=== PATIENT | male | born 2000 | race Caucasian/White ===

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

== ENCOUNTER → 2022-02-12 19:19 | Outpatient (CLI) | payer OTHER, MEDICAID, SELFPAY ==
[2022-02-12 20:32] LABS: COVID-19 CEPHEID 4-PLEX PCR Negative (Negative); Influenza A - CEPHEID Flu A NEGATIVE (NEGATIVE); Influenza B - CEPHEID Flu B NEGATIVE (NEGATIVE); Respiratory Syncytial Virus Negative (Negative)
== END ==
PROVIDERS: Family Provider Pediatrics; PCP Pediatrics; Visit Provider Physician Assistant Medical
DX: R11.10 Vomiting, unspecified (principal)
CPT/HCPCS: 0241U

== ENCOUNTER 2022-06-04 21:32 | Emergency (ER) | payer OTHER, MEDICAID, SELFPAY ==
[2022-06-04 21:45] VITALS: BP 130/70; PULSE 80; RESP 18; TEMP 37.1; O2SAT 98; BMI 31.7
--- NOTE | 2022-06-04 21:55 | ED_ITS ---
HPI - General Adult General Chief complaint: Nausea/Vomiting/Diarrhea Stated complaint: vomiting Time Seen by Provider: 06/04/22 21:33 History of Present Illness HPI narrative: 22 year old male smoker with asthma presents with a friend at bedside in the chief complaint multiple episodes of nausea vomiting and diarrhea over the course of the day. He states he started feeling a bit under the weather yesterday was bothered by nausea but today he is had multiple episodes of vomiting as stated. He states that at times there is some generalized crampy abdominal pain but that seems to have resolved. He denies any fever or chills. Denies recent antibiotics, travel or exposure to bad food. Did have some upper respiratory complaints last week with nasal congestion and cough and was seen at a walk-in clinic but they had run out of COVID swabs so he was not swabbed. Related Data Previous Rx's Medication Instructions Recorded benzoyl peroxide 10 % topical 1 colin topical QAM ##45 10/16/16 cream (Clearasil Daily Clear (benzoyl peroxide)) tretinoin 0.025 % topical cream 1 colin topical HS ##45 10/16/16 (Retin-A) cetirizine 10 mg tablet (Allergy 10 mg PO DAILY #30 tabs 06/22/18 Relief (cetirizine)) cyclobenzaprine 10 mg tablet 10 mg PO BID PRN muscle spasm #7 11/21/19 tabs amoxicillin 500 mg capsule 500 mg PO BID #20 caps 07/21/20 ondansetron 4 mg disintegrating 4 mg PO Q8H PRN nausea #14 tabs 02/12/22 tablet ondansetron 4 mg disintegrating 4 mg PO TID-QID PRN nausea and 06/04/22 tablet vomiting #10 tabs pantoprazole 40 mg tablet,delayed 40 mg PO DAILY #30 tabs 06/04/22 release (Protonix) Allergies Allergy/AdvReac Type Severity Reaction Status Date / Time No Known Drug Allergies Allergy Unknown Verified 02/12/22 19:19 Review of Systems Review of Systems Narrative: GENERAL: See HPI HEENT: Denies sinus pain, ear pain, sore throat, difficulty swallowing, dizziness. RESPIRATORY: Denies dyspnea, cough, wheezing, hemoptysis, sputum. CARDIOVASCULAR: Denies chest pain, palpitations, orthopnea, edema, GASTROINTESTINAL: See HPI : Denies dysuria, frequency, incontinence, hematuria, urinary retention. MUSCULOSKELETAL: denies weakness, joint pain, or bony pain SKIN: Denies rash, skin lesions, or other NEUROLOGIC: Denies weakness, headache, numbness, change in speech, confusion, seizures, incoordination. PSYCHIATRIC: No concerning psychosocial issues. 12 point review of systems is negative except for those stated above Patient History Medical History (Updated 06/04/22 @ 23:19 by Chidi Scott DO) History of sleep apnea (10/16/16) Social History Smoking Status: Current every day smoker Smoking Status: Current every day smoker alcohol intake frequency: a few times a month Substance Use Type: marijuana Exam Narrative Exam Narrative: GENERAL: [22] year old patient appears stated age. Well-developed patient, in mild distress. HEAD: Atraumatic. Normocephalic. EYES: Pupils equal round and reactive. Extraocular motions intact. No scleral icterus. No injection or drainage. ENT: Nose without bleeding, purulent drainage. Throat without erythema, tonsillar hypertrophy or exudate. Airway patent. NECK: Trachea midline. Non tender CARDIOVASCULAR: Regular rate and rhythm without murmurs, gallops, or rubs. RESPIRATORY: Clear to auscultation. Breath sounds equal bilaterally. No wheezes, rales, or rhonchi. GASTROINTESTINAL: Abdomen soft, non-tender, nondistended. EXTREMITIES: No edema or joint tenderness. BACK: Nontender without deformity or crepitance. No flank tenderness. NEURO: AOx3. SKIN: No rash or erythema of visible areas Initial Vital Signs Initial Vital Signs: Vital Signs Temperature 98.8 F 06/04/22 21:45 Pulse Rate 80 06/04/22 21:45 Respiratory Rate 18 06/04/22 21:45 Blood Pressure 130/70 06/04/22 21:45 Pulse Oximetry 98 06/04/22 21:45 Oxygen Delivery Method Room Air 06/04/22 21:45 Course Orders Ordered: ED Orders 06/04/22 22:00 Covid-19 + FLU A/B + RSV - PCR Stat 06/04/22 22:10 Complete Blood Count AUTO DIFF Stat Comprehensive Metabolic Panel Stat Magnesium Stat Discontinued Medications Sodium Chloride (Normal Saline 0.9%) 1,000 mls @ 1,000 mls/hr IV BOLUS ONE Stop: 06/04/22 22:52 Last Infusion: 06/04/22 22:49 Dose: 0 mls/hr Documented By: Admin: 06/04/22 22:08 Dose: 1,000 mls/hr Documented By: PAWEL Ondansetron HCl (Ondansetron 4 Mg/2 Ml Inj) 4 mg IV NOW ONE Stop: 06/04/22 21:54 Last Admin: 06/04/22 22:08 Dose: 4 mg Documented By: PAWEL Ondansetron HCl (Ondansetron 4 Mg Odt Prepack) 1 bottle MISC SEEINSTR ONE Stop: 06/04/22 23:19 Last Admin: 06/04/22 23:24 Dose: 1 bottle Documented By: PAWEL Pantoprazole Sodium (Pantoprazole 40 Mg Vial) 40 mg IV NOW ONE Stop: 06/04/22 21:54 Last Admin: 06/04/22 22:08 Dose: 40 mg Documented By: PAWEL Vital Signs Vital signs: Vital Signs - 8 hr 06/04/22 22:30 06/04/22 23:28 Pulse Rate 84 76 Respiratory Rate 18 16 Blood Pressure 131/73 148/72 H Pulse Oximetry 97 95 Oxygen Delivery Method Room Air Room Air Medical Decision Making Lab Data 06/04/22 22:10 06/04/22 22:10 Labs: Lab Results 06/04/22 06/04/22 06/04/22 Range/Units 22:00 22:10 22:10 WBC 8.4 (4.5-11.0) X10^3/uL RBC 4.75 (4.5-5.9) X10^6/uL Hgb 13.9 (13.5-17.5) g/dL Hct 41.5 (41-53) % MCV 87.3 (80-100) fL MCH 29.3 (26-34) PG MCHC 33.6 (30-36) % RDW 12.8 (11.6-14.8) % Plt Count 308 (150-400) X10^3/uL Neut % (Auto) 80.2 H (50-75) % Lymph % (Auto) 8.9 L (25-40) % Mcpherson % (Auto) 9.0 (3-14) % Eos % (Auto) 1.3 L (2-4) % Baso % (Auto) 0.6 (0-2) % Neut # (Auto) 6700 (9135-8372) /uL Lymph # (Auto) 700 L (3423-8959) /uL Mcpherson # (Auto) 800 (0-900) /uL Eos # (Auto) 100 (0-450) /uL Baso # (Auto) 0 (0-100) /uL Sodium 139 (137-145) mmol/L Potassium 3.4 (3.4-5.1) mmol/L Chloride 103 (98-107) mmol/L Carbon Dioxide 26 (22-32) mmol/L BUN 12 (9-20) mg/dL Creatinine 0.86 (0.66-1.25) mg/dL Estimated GFR > 60 (>60) mL/min BUN/Creatinine Ratio 14.0 (6-22) Glucose 96 (70-100) mg/dL Calcium 8.4 (8.4-10.2) mg/dL Magnesium 1.8 (1.6-2.3) mg/dL Total Bilirubin 1.2 (0.2-1.3) mg/dL AST 43 (17-59) IU/L ALT 39 (<50) IU/L Alkaline Phosphatase 77 (38-126) U/L Total Protein 7.1 (6.3-8.2) g/dL Albumin 4.4 (3.5-5.0) g/dL Globulin 2.7 (1.7-4.1) g/dL Albumin/Globulin Ratio 1.6 (1.0-2.8) SARS-CoV-2 (PCR) Negative (Negative) Influenza A (RT-PCR) Flu a negative (NEGATIVE) Influenza B (RT-PCR) Flu b negative (NEGATIVE) RSV (PCR) Negative (Negative) MDM Narrative Medical decision making narrative: CC: 22M with N/V/D Complicating co-morbidities: none known Data collected from: Patient Medical records reviewed: Prior notes reviewed in our EMR Differential considered, but not limited to: GI viral infection, Covid, Flu vs. other Exam documented above, pertinent findings include: moist mucous membranes, heart rate regular, abdomen soft Lab Test results independently reviewed as above. Pertinent findings: Treatments: Fluids, Zofran, Protonix Re-evaluations: Patient feeling significant improvement, no longer dizzy, weak or lightheaded, nausea is improved and he is tolerating orals without difficulty. Discussion: Patient with nausea, vomiting and diarrhea with reassuring labs and vital signs. He has an appropriate response to fluids, Zofran and Protonix. There is no indication for the need to perform a larger or more in-depth workup, patient feeling much better and requesting discharge. Disposition: see below, along with detailed discharge instructions that have been reviewed with patient as well as indications for ED re-evaluation and additional outpatient follow up Discharge Plan Departure Patient Disposition: Home Clinical Impression: Vomiting, Diarrhea Instructions: Nausea and Vomiting-Adult Activity Restrictions/Additional Instructions: *You have been diagnosed with [nausea vomiting and diarrhea. As we discussed this is nearly always from a viral cause and should run its course over the next few days. * As we discussed your history and physical exam as well as labs and imaging are very reassuring. There is no evidence of any severe diagnoses that would require a specific or immediate intervention. *What to do: *Please continue to take your regular medications as directed. [x ] New medication prescriptions sent to your pharmacy: [[facility] in [place] ] *Please follow up with your primary care provider in 2-3 days, call for an appointment. Let them know you were seen in the Emergency Department and that we ask that you be seen in follow up. We will electronically transmit a record of today's note if your PCP is in our system *Please consider a clear liquid diet for the next 24-48 hours and then slowly advance to regular as tolerated. Also, try to avoid alcohol, nicotine, caffeine, spicy, acidic or fatty foods as this may worsen your symptoms *If you do not have a primary care provider please contact the [facility] Resource line at [phone]. They will ask some questions about your medical history and help get you set up with a doctor in the community. *Return to Emergency Department if you should have any new, worsening or concerning symptoms, such as [fever greater than 101 F, shaking chills, worsening pain, persistent vomiting or other bothersome symptoms] Prescriptions: New pantoprazole [Protonix] 40 mg tablet,delayed release (DR/EC) 40 mg PO DAILY Qty: 30 0RF ondansetron 4 mg tablet,disintegrating 4 mg PO TID-QID PRN (Reason: nausea and vomiting) Qty: 10 0RF No Action amoxicillin 500 mg capsule 500 mg PO BID Qty: 20 0RF ondansetron 4 mg tablet,disintegrating 4 mg PO Q8H PRN (Reason: nausea ) Qty: 14 0RF tretinoin [Retin-A] 0.025 % cream 1 colin Topical HS Qty: 45 12RF benzoyl peroxide [Clearasil Daily Clear(benzoyl)] 10 % cream 1 colin Topical QAM Qty: 45 12RF cetirizine [Allergy Relief (cetirizine)] 10 mg tablet 10 mg PO DAILY Qty: 30 12RF Rx Instructions: Take one tab by mouth daily cyclobenzaprine 10 mg tablet 10 mg PO BID PRN (Reason: muscle spasm) Qty: 7 0RF Referrals: Christi Rubio MD [Primary Care Provider] - Stand Alone Forms: Patient Portal/API, Work Release Note
[2022-06-04] MEDS: ONDANSETRON 4 MG/2 ML INJ IV (22:08)
[2022-06-04] MEDS: PANTOPRAZOLE 40 MG VIAL IV (22:08)
[2022-06-04] MEDS: SODIUM CHLORIDE 0.9% 1,000 ML 1000 ML IV (22:08)
[2022-06-04 22:30] VITALS: BP 131/73; PULSE 84; RESP 18; O2SAT 97
[2022-06-04 22:30] LABS: Add Manual Diff / Slide Review NO; Basophils Absolute Auto 0 /uL (0-100); Basophils Percent Auto 0.6 % (0-2); Eosinophils Absolute Auto 100 /uL (0-450); Eosinophils Percent Auto 1.3 % (2-4); Hematocrit 41.5 % (41-53); Hemoglobin 13.9 g/dL (13.5-17.5); Lymphocytes Absolute Auto 700 /uL (1100-4500); Lymphocytes Percent Auto 8.9 % (25-40); Mean Corpuscular HGB Conc 33.6 % (30-36); Mean Corpuscular Hemoglobin 29.3 PG (26-34); Mean Corpuscular Volume 87.3 fL (80-100); Monocytes Absolute Auto 800 /uL (0-900); Neutrophils Absolute Auto 6700 /uL (1500-7000); Neutrophils Percent Auto 80.2 % (50-75); Platelet Count 308 X10^3/uL (150-400); Red Blood Cell Count 4.75 X10^6/uL (4.5-5.9); Red Cell Distribution Width 12.8 % (11.6-14.8); White Blood Cell Count 8.4 X10^3/uL (4.5-11.0)
[2022-06-04 22:47] LABS: Alanine Aminotransferase 39 IU/L (<50); Albumin 4.4 g/dL (3.5-5.0); Albumin Globulin Ratio 1.6 (1.0-2.8); Alkaline Phosphatase 77 U/L (38-126); Aspartate Aminotransferase 43 IU/L (17-59); Bilirubin Total 1.2 mg/dL (0.2-1.3); Blood Urea Nitrogen 12 mg/dL (9-20); Calcium 8.4 mg/dL (8.4-10.2); Carbon Dioxide 26 mmol/L (22-32); Chloride 103 mmol/L (98-107); Estimated Glomerular Filt Rate > 60 mL/min (>60); Globulin 2.7 g/dL (1.7-4.1); Glucose 96 mg/dL (70-100); HEMOLYSIS < 15 (0-50); Magnesium 1.8 mg/dL (1.6-2.3); Potassium 3.4 mmol/L (3.4-5.1); Sodium 139 mmol/L (137-145); Total Protein 7.1 g/dL (6.3-8.2)
[2022-06-04 23:09] LABS: Influenza A - CEPHEID Flu A NEGATIVE (NEGATIVE); Influenza B - CEPHEID Flu B NEGATIVE (NEGATIVE); Respiratory Syncytial Virus Negative (Negative)
[2022-06-04 23:12] LABS: COVID-19 CEPHEID 4-PLEX PCR Negative (Negative)
[2022-06-04] MEDS: ONDANSETRON 4 MG ODT PREPACK 1 BOTTLE MISC (23:24)
[2022-06-04 23:28] VITALS: BP 148/72; PULSE 76; RESP 16; O2SAT 95
== END 2022-06-04 23:29 | disposition home or self-care (01) ==
PROVIDERS: Emergency Provider Emergency Medicine; Family Provider Pediatrics; PCP Pediatrics
DX: R11.2 Nausea with vomiting, unspecified (principal); R19.7 Diarrhea, unspecified
CPT/HCPCS: 0241U; 36415; 80053; 83735; 85025; 96374; 96375; 99284; C9113; J2405